=== PATIENT | male | born 1990 | race African-American/Black ===

== ENCOUNTER 2018-03-28 01:35 | Emergency (ER) | payer OTHER ==
[~2018-03-28] VITALS: Ht 172.7 cm; Wt 72.6 kg
[~2018-03-28 01:35] MED LIST: AMBEREN; CIPROFLOXACIN500 M1 PO; FLAGYL500 MG PO; NORCO 5-325 TA1 EACH PO; PEPCID20 MG PO; ZOFRAN ODT4 MG PO
[2018-03-28 01:55] LABS: ABSOLUTE NEUTROPHILS 17.1 thou/uL (1.4-8.2); BASOPHILS 0.3 % (0.0-2.0); EOSINOPHILS 0.1 % (0.0-3.0); HEMATOCRIT 44.6 % (42.0-52.0); HEMOGLOBIN 14.6 gm/dL (14.0-18.0); LYMPHOCYTES 4.9 % (24.0-44.0); MCH 28.6 pg (26.0-34.0); MCHC 32.8 g/dL (28.0-37.0); MCV 87.2 fL (80.0-100.0); MONOCYTES 4.9 % (1.0-8.0); PLATELET COUNT 295 thou/uL (150-400); POLYS 89.8 % (36.0-66.0); RBC 5.11 mil/uL (4.50-6.00)
[2018-03-28 02:02] LABS: CALCIUM 9.5 mg/dL (8.5-10.1); CREATININE 1.2 mg/dL (0.7-1.3); POTASSIUM 3.8 mmol/L (3.5-5.1)
[2018-03-28 02:08] LABS: ALBUMIN 4.3 g/dL (3.4-5.0); TOTAL BILIRUBIN 0.7 mg/dL (<0.1-1.0); TOTAL PROTEIN 7.9 g/dL (6.4-8.2)
[2018-03-28 04:02] LABS: URINE BILIRUBIN NEGATIVE (Negative); URINE CLARITY CLEAR; URINE COLOR YELLOW; URINE GLUCOSE-RANDOM* NEGATIVE (Negative); URINE KETONES 1+ (Negative); URINE PROTEIN (DIPSTICK) NEGATIVE (Negative)
[2018-03-28 04:03] LABS: URINE BLOOD TRACE (Negative); URINE LEUKOCYTES NEGATIVE (Negative); URINE NITRITE NEGATIVE (Negative); URINE UROBILINOGEN 0.2 E.U./dl (0.2-1.0)
[2018-03-28] MEDS ORDERED: ZOFRAN4 MG PO (05:03)
[2018-03-28 05:09] VITALS: BP 125/77
== END 2018-03-28 05:09 | disposition home or self-care (01) ==
LOC: ER 01:35
PROVIDERS: Student in an Organized Health Care Education/Training Program
DX: K52.9 Noninfective gastroenteritis and colitis, unspecified (principal); Z88.0 Allergy status to penicillin

== ENCOUNTER 2018-03-28 15:16 | Emergency (ER) | payer OTHER ==
[~2018-03-28] VITALS: Ht 172.7 cm; Wt 72.6 kg
[~2018-03-28 15:16] MED LIST changes: +ZOFRAN4 MG PO
[2018-03-28 16:16] LABS: ABSOLUTE NEUTROPHILS 15.5 thou/uL (1.4-8.2); BASOPHILS 0.2 % (0.0-2.0); HEMATOCRIT 43.5 % (42.0-52.0); HEMOGLOBIN 14.4 gm/dL (14.0-18.0); LYMPHOCYTES 6.4 % (24.0-44.0); MCH 28.7 pg (26.0-34.0); MCHC 33.1 g/dL (28.0-37.0); MCV 86.7 fL (80.0-100.0); MONOCYTES 8.5 % (1.0-8.0); PLATELET COUNT 272 thou/uL (150-400); POLYS 84.9 % (36.0-66.0); RBC 5.02 mil/uL (4.50-6.00); RDW 13.1 % (10.5-14.5); WBC 18.2 thou/uL (4.0-11.0)
[2018-03-28 16:22] LABS: URINE BILIRUBIN NEGATIVE (Negative); URINE BLOOD 3+ (Negative); URINE CLARITY CLEAR; URINE COLOR YELLOW; URINE GLUCOSE-RANDOM* NEGATIVE (Negative); URINE KETONES 1+ (Negative); URINE NITRITE-REFLEX NEGATIVE (Negative); URINE PROTEIN (DIPSTICK) TRACE (Negative); URINE UROBILINOGEN 0.2 E.U./dl (0.2-1.0)
[2018-03-28 16:23] LABS: URINE LEUKOCYTES-REFLEX NEGATIVE (Negative)
[2018-03-28 16:24] LABS: AMP/METHAMP Negative (Negative); BARBITURATES Negative (Negative); BENZODIAZEPINES Negative (Negative); COCAINE Negative (Negative); METHADONE Negative (Negative); OPIATES Negative (Negative); PCP Negative (Negative)
[2018-03-28 16:27] LABS: CALCIUM 9.8 mg/dL (8.5-10.1); CREATININE 1.6 mg/dL (0.7-1.3); POTASSIUM 3.7 mmol/L (3.5-5.1)
[2018-03-28 16:33] LABS: ALBUMIN 4.5 g/dL (3.4-5.0); TOTAL BILIRUBIN 0.6 mg/dL (<0.1-1.0); TOTAL PROTEIN 8.2 g/dL (6.4-8.2)
[2018-03-28 16:33] LABS: CASTS None Seen /LPF (None Seen); SQUAMOUS None Seen /LPF (0-3)
[2018-03-28 16:34] LABS: BACTERIA-REFLEX None Seen /HPF (None Seen); CRYSTALS None Seen /LPF (None Seen); MUCUS >6 Heavy strn/LPF (None Seen); URINE RBC >20 Many /HPF (0-2); URINE WBC-REFLEX 0-5 Rare /HPF (0-5)
[2018-03-28 19:13] VITALS: BP 131/79
== END 2018-03-28 19:17 | disposition short-term general hospital (02) ==
LOC: ER 15:16
PROVIDERS: Physician Assistant
DX: R11.2 Nausea with vomiting, unspecified (principal); N20.1 Calculus of ureter; Z88.0 Allergy status to penicillin; Z79.899 Other long term (current) drug therapy